=== PATIENT | male | born 1980 | race Two or more races ===

== ENCOUNTER 2019-04-27 17:40 | Emergency (ER) | payer OTHER ==
[~2019-04-27] VITALS: Ht 180.3 cm; Wt 111.8 kg
[2019-04-27 17:52] VITALS: BP 171/108
--- NOTE | 2019-04-27 17:53 | NUR ---
PT HERE WITH C/O POSSIBLE RIGHT LEG DVT. + SWELLING. RIGHT PEDAL PULSE PALPABLE. PT AAO X 4, ARRIVED IN SHACKLES, DRESSED IN GOWN AND ATTACHED TO MONITOR. ARMED GUARDS X 2 AT BEDSIDE.
[2019-04-27] MEDS ORDERED: IBUPROFEN 600 MG TABLET ONE (18:23)
--- NOTE | 2019-04-27 18:26 | NUR ---
PT MEDICATED PER ORDER. ICE PACK APPLIED.
[2019-04-27] MEDS ORDERED: IBUPROFEN 600 MG TABLET PO ONE (18:30)
--- NOTE | 2019-04-27 18:31 | NUR ---
PT TO US WITH CIGAR HEAD STRINGER X 2.
--- NOTE | 2019-04-27 18:49 | NUR ---
PT BACK FROM US.
--- NOTE | 2019-04-27 19:35 | NUR ---
ALL RESULTS BACK AT THIS TIME, CHART UP FOR RECHECK.
--- NOTE | 2019-04-27 19:47 | NUR ---
Patient/Caregiver given discharge instructions and they have confirmed that they understand the instructions. Patient ambulatory with steady gait.
== END 2019-04-27 19:49 | disposition home or self-care (01) ==
LOC: EDBD 17:40 → ED 18:27
DX: I10 Essential (primary) hypertension (principal); M79.661 Pain in right lower leg
CPT/HCPCS: 99284